=== PATIENT | female | born 1965 | race Caucasian/White ===

== ENCOUNTER → 2017-01-04 | Outpatient (CLI) | payer OTHER ==
[2017-01-04 14:05] VITALS: BP 118/66; PULSE 62; RESP 16; TEMP 98.1; BMI 30.3
[2017-01-04 17:42] LABS: CH 27.8; CHCM 32.7; HCT 34.9 % (34.0-46.0); HDW 2.47; HGB 11.9 gm/dL (11.4-16.0); MCH 29.3 pg (25.0-35.0); MCHC 34.3 g/dL (31.0-37.0); MCV 85.4 fL (80.0-100.0); Mean Platelet Volume 7.1; RBC 4.08 m/uL (3.80-5.40); RDW 13.6 % (11.5-15.5); WBC 4.9 k/uL (3.8-10.6)
[2017-01-04 17:51] LABS: Partial Thromboplastin Time 22.9 sec (22.0-30.0); Prothrombin Time 10.1 sec (9.0-12.0)
[2017-01-04 18:07] LABS: ALT 44 U/L (9-52); AST 31 U/L (14-36); Alkaline Phosphatase 95 U/L (38-126); Anion Gap 11 mmol/L; Blood Urea Nitrogen 16 mg/dL (7-17); Calcium 9.3 mg/dL (8.4-10.2); Carbon Dioxide 26 mmol/L (22-30); Chloride 103 mmol/L (98-107); Cholesterol 194 mg/dL (<200); Glucose 81 mg/dL (74-99); HDL Cholesterol 60 mg/dL (40-60); Iron 52 ug/dL (37-170); Magnesium 2.1 mg/dL (1.6-2.3); Non-African American GFR(MDRD) >60 (>60 ml/min/1.73 sqM); Phosphorous 4.1 mg/dL (2.5-4.5); Potassium 4.3 mmol/L (3.5-5.1); Sodium 140 mmol/L (137-145); Total Bilirubin 0.4 mg/dL (0.2-1.3); Total Protein 6.9 g/dL (6.3-8.2)
[2017-01-04 18:47] LABS: Prealbumin 22 mg/dL (18-36); Total Iron Binding Capacity 372 ug/dL (265-497)
[2017-01-04 19:11] LABS: Vitamin B12 243 pg/mL (239-931)
[2017-01-04 20:23] LABS: Hemoglobin A1C 5.4 % (4.2-6.1)
[2017-01-10 16:44] LABS: Selenium 136 mcg/L (63-160)
--- NOTE | 2017-02-04 10:27 | P.PN ---
Progress Note - Text DATE OF SERVICE: 01/04/2017 CHIEF COMPLAINT: Follow-up gastric bypass. HISTORY OF PRESENT ILLNESS: Angelique Little is a 51-year-old female who is status post conversion from a band to a sleeve to now a Montrell-en-Y gastric bypass in February 2015. She denies any recurrent gastroesophageal reflux disease. She denies any increased fatigue. She has personal history of chronic iron deficiency anemia. Since her last visit 9 months ago, she has gained 6 pounds. She and her has been vacationing in [place]. She reports overall doing very well. Her highest weight prior to any surgical intervention was 300 pounds. Today she comes in weighing 193 pounds. Her ideal body weight for her 5-foot 7-inch frame is 158 pounds. She has maintained a 107-pound weight loss. Body mass index has been reduced from 47 down to 30.3. Percent excess weight loss has been maintained at 75 %. Since her weight loss she has maintained a 16.7 BMI point decrease. PAST MEDICAL HISTORY: 1. Morbid obesity. 2. GERD. 3. Iron deficiency anemia. 4. Leukopenia. 5. Variant multiple sclerosis. 6. Chronic migraines. PAST SURGICAL HISTORY: 1. . 2. Cholecystectomy. 3. Tubal ligation. 4. Adjustable gastric band placement. 5. Band removal with revision to sleeve gastrectomy. 6. Revision from sleeve gastrectomy to a Montrell-en-Y gastric bypass. MEDICATIONS: 1. Vitamin A. 2. Multivitamin. 3. Iron. 4. Cod liver oil. 5. Vitamin D. 6. Calcium. ALLERGIES: Denies. SOCIAL HISTORY: Denies any active alcohol or tobacco use. FAMILY HISTORY: Both parents are . Mother of brain hemorrhage. Father of lymphoma. Brother of lung cancer. REVIEW OF SYSTEMS: CONSTITUTIONAL: Highest weight of 300 pounds. [place] body weight 158 pounds for a 5-foot 7-inch frame. Total maintained weight loss of 113 pounds. Percent excess weight loss of 75 %. Body mass index reduced from 47 down to 30.3. BMI point reduction of 16.7. GASTROINTESTINAL: Resolved gastroesophageal reflux disease. No dumping syndrome. RESPIRATORY: No reports of obstructive sleep apnea. CARDIOVASCULAR: No reports of hypertension. HEENT: Denies any trouble with vision, hearing or nosebleeds. No difficulty swallowing. LYMPHATIC: The patient denies any lumps and bumps around the neck. ENDOCRINE: Denies any thyroid disorders. Denies any blood sugar glucose intolerance. GENITOURINARY: Denies any blood in urine or increased urinary frequency. MUSCULOSKELETAL: Resolved bilateral lower extremity swelling. NEUROLOGIC: Denies any numbness or tingling along the distal extremities. No seizure disorders or headaches. PSYCHIATRIC: Denies any depression or suicidal ideation. HEMATOLOGIC: Denies any abnormal bleeding or bruising. Has chronic anemia. PHYSICAL EXAM: VITAL SIGNS: 5 feet 7 inches; 193 pounds. Body mass index 30.3. Vital Signs Temp 98.1 F 01/04/17 13:54 Pulse 62 01/04/17 13:54 Resp 16 01/04/17 13:54 BP 118/66 01/04/17 13:54 Pulse Ox GENERAL: Well-developed female in no acute distress. ABDOMEN: Soft, nontender. No peritoneal signs. No incisional hernias. HEENT: No sclera icterus. Extraocular movements grossly intact. Moist buccal mucosa. Head is atraumatic, normocephalic. Hears conversational speech. No nasal drainage. NECK: Supple without lymphadenopathy. No JV distention. CHEST: Non-labored respirations and equal bilateral excursions. CARDIOVASCULAR: Regular rate and rhythm. Palpable 2+ radial pulses. MUSCULOSKELETAL: No clubbing, cyanosis or edema. NEUROLOGIC: No focal or lateralizing signs. PSYCH: Appropriate affect. Alert and oriented to person, place and time. LABS: Laboratory Last Values WBC 4.9 k/uL (3.8-10.6) 01/04/17 16:41 RBC 4.08 m/uL (3.80-5.40) 01/04/17 16:41 Hgb 11.9 gm/dL (11.4-16.0) 01/04/17 16:41 Hct 34.9 % (34.0-46.0) 01/04/17 16:41 MCV 85.4 fL (80.0-100.0) 01/04/17 16:41 MCH 29.3 pg (25.0-35.0) 01/04/17 16:41 MCHC 34.3 g/dL (31.0-37.0) 01/04/17 16:41 RDW 13.6 % (11.5-15.5) 01/04/17 16:41 Plt Count 280 k/uL (150-450) 01/04/17 16:41 PT 10.1 sec (9.0-12.0) 01/04/17 16:41 INR 1.0 (<1.1) 01/04/17 16:41 APTT 22.9 sec (22.0-30.0) 01/04/17 16:41 Sodium 140 mmol/L (137-145) 01/04/17 16:41 Potassium 4.3 mmol/L (3.5-5.1) 01/04/17 16:41 Chloride 103 mmol/L (98-107) 01/04/17 16:41 Carbon Dioxide 26 mmol/L (22-30) 01/04/17 16:41 Anion Gap 11 mmol/L 01/04/17 16:41 BUN 16 mg/dL (7-17) 01/04/17 16:41 Creatinine 0.60 mg/dL (0.52-1.04) 01/04/17 16:41 Est GFR (MDRD) Af Amer >60 (>60 ml/min/1.73 sqM) 01/04/17 16:41 Est GFR (MDRD) Non-Af >60 (>60 ml/min/1.73 sqM) 01/04/17 16:41 Glucose 81 mg/dL (74-99) 01/04/17 16:[address] Glu mg/dL 108 mg/dL 01/04/17 16:41 Hemoglobin A1c 5.4 % (4.2-6.1) 01/04/17 16:41 Calcium 9.3 mg/dL (8.4-10.2) 01/04/17 16:41 Phosphorus 4.1 mg/dL (2.5-4.5) 01/04/17 16:41 Magnesium 2.1 mg/dL (1.6-2.3) 01/04/17 16:41 Iron 52 ug/dL (37-170) 01/04/17 16:41 TIBC 372 ug/dL (265-497) 01/04/17 16:41 Ferritin 7 ng/mL (11-264) L 01/04/17 16:41 Total Bilirubin 0.4 mg/dL (0.2-1.3) 01/04/17 16:41 AST 31 U/L (14-36) 01/04/17 16:41 ALT 44 U/L (9-52) 01/04/17 16:41 Alkaline Phosphatase 95 U/L (38-126) 01/04/17 16:41 Total Protein 6.9 g/dL (6.3-8.2) 01/04/17 16:41 Albumin 4.3 g/dL (3.5-5.0) 01/04/17 16:41 Prealbumin 22 mg/dL (18-36) 01/04/17 16:41 Triglycerides 163 mg/dL (<150) H 01/04/17 16:41 Cholesterol 194 mg/dL (<200) 01/04/17 16:41 LDL Cholesterol, Calc 101 mg/dL (0-99) H 01/04/17 16:41 HDL Cholesterol 60 mg/dL (40-60) 01/04/17 16:41 Vitamin A 36 ug/dL (38-106) L 01/04/17 16:41 Vitamin B1 48 ug/L (38-122) 01/04/17 16:41 Vitamin B12 243 pg/mL (239-931) 01/04/17 16:41 Vitamin D 25-Hydroxy 31.9 ng/mL (30.0-100.0) 01/04/17 16:41 Folate 11.70 ng/mL (>2.75) 01/04/17 16:41 TSH 1.560 mIU/L (0.465-4.680) 01/04/17 16:41 PTH Intact 126.0 pg/mL (14.0-72.0) H 01/04/17 16:41 Copper 1212 ug/L (810-1990) 01/04/17 16:41 Selenium 136 mcg/L (63-160) 01/04/17 16:41 Zinc 61 ug/dL (60-130) 01/04/17 16:41 ASSESSMENT: 1. Morbid obesity due to excess caloric intake. 2. Body mass index reduced from 47 down to 30.3. 3. Status post revision from sleeve gastrectomy to a Montrell-en-Y gastric bypass. 4. Gastroesophageal reflux disease, severe, now resolved. 5. History of fatigue. 6. History of chronic iron deficiency anemia, now improved. 7. Panniculitis of the abdomen. 8. Chronic migraines. 9. Secondary hyperparathyroidism. 10. Vitamin A deficiency. PLAN: 1. Recommend completion of bariatric metabolic panel 2. Continue multivitamins. 3. Recommend protein intake at least 60 g daily. 4. Follow-up in [place] in 2 to 3 weeks. 5. Recommend vitamin A supplement. 6. Recommend calcium intake over 1200 mg daily.
== END | disposition home or self-care (01) ==
LOC: BARWHC3 13:48
PROVIDERS: ATTEND Surgery Plastic and Reconstructive Surgery
DX: Z48.815 Encounter for surgical aftercare following surgery on the digestive system (principal); K65.4 Sclerosing mesenteritis; G43.909 Migraine, unspecified, not intractable, without status migrainosus; N25.81 Secondary hyperparathyroidism of renal origin; E50.9 Vitamin A deficiency, unspecified; E21.1 Secondary hyperparathyroidism, not elsewhere classified; E89.1 Postprocedural hypoinsulinemia; D50.8 Other iron deficiency anemias; K90.89 Other intestinal malabsorption; E55.9 Vitamin D deficiency, unspecified; K76.9 Liver disease, unspecified; N19 Unspecified kidney failure; K50.90 Crohn's disease, unspecified, without complications; E66.01 Morbid (severe) obesity due to excess calories; Z68.30 Body mass index [BMI] 30.0-30.9, adult; Z98.84 Bariatric surgery status; Z86.2 Personal history of diseases of the blood and blood-forming organs and certain disorders involving the immune mechanism; Z79.899 Other long term (current) drug therapy
CPT/HCPCS: 84255; 84134; 84425; 80061; 80053; 82607; 82728; 83036; 82525; 82746; 83540; 83550; 83735; 84100; 84443; 84590; 84630; 85027; 85610; 85730; 82306; 83970; 97803; G0463; 99211

== ENCOUNTER → 2018-04-25 | Outpatient (CLI) | payer OTHER ==
[2018-04-25 15:00] VITALS: BP 120/70; PULSE 70; RESP 16; TEMP 98; BMI 29.6
--- NOTE | 2018-04-25 15:32 | P.PN ---
Subjective Progress Note Date: 04/25/18 HPI: She is doing well. She has lost 8 pounds since her last visit. She reports adequate appetite. No new abdominal pain. No GERD. Highest weight was 257 pounds. She has chronic skin infections and ulcerations. She is looking to lose more weight. ABDOMEN: No hernia. ASSESSMENT: 1. Gastric bypass 2. Morbid obesity. PLAN: 1. She is doing well. 2. She is looking into panniculectomy 3. Nystatin powder. Objective - Vital Signs Vital signs: Vital Signs Temp 98 F 04/25/18 14:30 Pulse 70 04/25/18 14:30 Resp 16 04/25/18 14:30 BP 120/70 04/25/18 14:30 Pulse Ox Intake & Output 04/24/18 04/25/18 04/25/18 18:59 06:59 18:59 Weight 85.729 kg
== END ==
LOC: BARWHC3 13:55
PROVIDERS: ATTEND Surgery Plastic and Reconstructive Surgery
DX: E66.01 Morbid (severe) obesity due to excess calories (principal); L08.9 Local infection of the skin and subcutaneous tissue, unspecified; Z68.29 Body mass index [BMI] 29.0-29.9, adult
CPT/HCPCS: 99211

== ENCOUNTER → 2018-10-25 | Day surgery (SDC) | payer OTHER ==
[2018-10-23 13:32] VITALS: BMI 32.4
[~2018-10-25] MED LIST: LACTATED RINGERS 1,000 ML IV SCH; LIDOCAINE 1% 20 ML VIAL (10MG/ML) FOR IV START INTRADERMA ONE; LIDOCAINE 1% INJ 10MG/ML (20 ML MDV) ONE; PROPOFOL 10 MG/ML 20 ML VIAL IV ONE
--- NOTE | 2018-10-25 09:20 | P.GSHP ---
History of Present Illness H&P Date: 10/25/18 CHIEF COMPLAINT: GERD and colon screen HISTORY OF PRESENT ILLNESS: The patient is a 53-year-old female who presents with gastroesophageal reflux disease and need for colon screen. Upper and lower endoscopy were offered for further evaluation and management. PAST MEDICAL HISTORY: Please see list. PAST SURGICAL HISTORY: Please see list. MEDICATIONS: Please see list. ALLERGIES: Please see list. SOCIAL HISTORY: No illicit drug use FAMILY HISTORY: No reports of Crohn disease or ulcerative colitis. REVIEW OF ORGAN SYSTEMS: CONSTITUTIONAL: No reports of fevers or chills. GI: Denies any blood in stools or constipation. PHYSICAL EXAM: VITAL SIGNS: Stable GENERAL: Well-developed pleasant in no acute distress. HEENT: No scleral icterus. Extraocular movements grossly intact. Moist buccal mucosa. NECK: Supple without lymphadenopathy. CHEST: Unlabored respirations. Equal bilateral excursions. CARDIOVASCULAR: Regular rate and rhythm. Distal 2+ pulses. ABDOMEN: Soft, nondistended. MUSCULOSKELETAL: No clubbing, cyanosis, or edema. ASSESSMENT: 1. Gastroesophageal reflux disease 2. Colon screen. PLAN: 1. Recommend proceeding with an upper and lower endoscopy Past Medical History Past Medical History: Blood Disorder, GERD/Reflux Additional Past Medical History / Comment(s): Has a kidney stones, runs low BP, Hx severe anemia. HX HYPOGLYCEMIA. C/O PAIN IN LUQ ABD/RIB AREA. History of Any Multi-Drug Resistant Organisms: None Reported Past Surgical History: Bariatric Surgery, Section, Cholecystectomy, Tubal Ligation Additional Past Surgical History / Comment(s): lap band 2009, later removed. gastric sleeve 2012, ELLIOT-N-Y 2014. Past Anesthesia/Blood Transfusion Reactions: Postoperative Nausea & Vomiting (PONV) Additional Past Anesthesia/Blood Transfusion Reaction / Comment(s): only once after surgery Smoking Status: Former smoker - Past Family History Mother Family Medical History: Deep Vein Thrombosis (DVT) Father Family Medical History: Cancer Brother(s) Family Medical History: Cancer Sister(s) Family Medical History: Cancer, Deep Vein Thrombosis (DVT) Medications and Allergies Home Medications Medication Instructions Recorded Confirmed Type Multivitamin [Multivitamins Adult 2 each PO DAILY 10/23/18 10/25/18 History Gummies] Allergies Allergy/AdvReac Type Severity Reaction Status Date / Time tree nut Allergy Anaphylaxis Verified 10/25/18 09:15 acetaminophen AdvReac Nausea Verified 10/25/18 09:15 [From Darvocet-N] propoxyphene AdvReac Nausea Verified 10/25/18 09:15 [From Darvocet-N] FRUIT (FRESH) Allergy Anaphylaxis Uncoded 10/25/18 09:15
[2018-10-25 09:21] VITALS: RESP 16; TEMP 98.2
[2018-10-25 09:28] LABS: Glucose,Whole Blood 86 mg/dL (75-99)
[2018-10-25 10:16] VITALS: PULSE 53
[2018-10-25 10:29] VITALS: BP 114/74
--- NOTE | 2018-11-05 10:27 | P.PCN ---
Date of Procedure: 10/25/18 Description of Procedure: PREOPERATIVE DIAGNOSIS: Dysphagia. Epigastric pain POSTOPERATIVE DIAGNOSIS: Dysphagia. Epigastric pain Gastric stenosis Gastrojejunal stricture without chronic ulcer without perforation OPERATION: Esophagogastrojejunoscopy with balloon dilatation from 18 to 20 mm. SURGEON: Larissa Handy MD ANESTHESIA: MAC. INDICATIONS: The patient is a 53-year-old female who presents with a history of dysphagia including epigastric pain. Benefits and risks of the procedure were described. Informed consent was obtained. DESCRIPTION: The patient was brought into the endoscopy suite and laid in the left lateral decubitus position. After a timeout was confirmed, the procedure was initiated. An Olympus gastroscope was passed along the posterior oropharynx down to the distal esophagus where the squamocolumnar junction was unremarkable. The gastric pouch was entered. A gastrojejunal stricture of 18 mm was found as the adult gastroscope was 9.5 mm in size. A [employer] balloon dilator was placed through the scope. Final insufflation up to 20 mm was performed with a total of 2 minutes. The scope was advanced up to 60 cm from the incisors into the [place] limb. The mucosa of the gastrojejunal anastomosis was intact. No chronic gastrojejunal marginal ulcer was encountered. No full-thickness injury was encountered. The GI tract was desufflated. The patient tolerated the procedure well. FINDINGS: Squamocolumnar junction unremarkable at 38 cm. Stricture of approximately 18 mm encountered. No chronic gastrojejunal ulceration encountered. Successful balloon dilatation to 20 mm. Gastric pouch 5 cm, 38 to 43 cm from the incisors RECOMMENDATIONS: Upper endoscopy as needed
--- NOTE | 2018-11-05 10:30 | P.PCN ---
Date of Procedure: 10/25/18 Description of Procedure: PREOPERATIVE DIAGNOSIS: Family history of colon cancer, high risk Colonoscopy screening. POSTOPERATIVE DIAGNOSIS: Family history of colon cancer, high risk Colonoscopy screening. OPERATION: Colonoscopy to the ileocecal valve and appendiceal orifice. SURGEON: Larissa Handy MD. ANESTHESIA: MAC. INDICATIONS: The patient is a 53-year-old female who presents for colonoscopy screening. Last colonoscopy 5 years ago. Benefits and risks were described and informed consent was obtained. DESCRIPTION OF PROCEDURE: The patient had undergone Gatorade, MiraLAX and Dulcolax prep. She had been brought into the operating room and laid in the left lateral decubitus position. After adequate intravenous sedation, the rectum was examined with 2% lidocaine jelly. No external hemorrhoids were encountered. The rectal tone was within normal limits. No lesions were palpated in the rectal vault. An Olympus colonoscope was advanced until the ileocecal valve and appendiceal orifice were clearly viewed. The prep was good. The scope was removed with visualization of each mucosal fold. No scattered diverticulosis was encountered. No colonic polyps were found. No evidence of focal colitis was found. Retroflexion of the scope demonstrated no internal hemorrhoids. The colon was desufflated. The patient had tolerated the procedure well. Withdrawal time was over 6 minutes. FINDINGS: Aronchick preparation quality scale 2 (1-5) No internal hemorrhoids No scattered diverticulosis No external prolapsed hemorrhoids. No arteriovenous malformations. No adenomatous polyps. No focal colitis. RECOMMENDATIONS: Lower endoscopy in 5 years, 2023 Plan - Discharge Summary Discharge Rx Participant: No New Discharge Prescriptions: No Action Multivitamin [Multivitamins Adult Gummies] 2 each PO DAILY Discharge Medication List Multivitamin [Multivitamins Adult Gummies] 2 each PO DAILY 10/23/18 [History] Follow up Appointment(s)/Referral(s): Larissa Handy MD [STAFF PHYSICIAN] - As Needed Patient Instructions/Handouts: *Surgery [facility] - (Anesthesia) Endoscopy Discharge Instructions, Upper Endoscopy (DC) Activity/Diet/Wound Care/Special Instructions: clears for today, slowly increase to soft foods then regular. small amts at a time. Call Dr Handy if pain persists or any other questions or concerns. Discharge Disposition: HOME SELF-CARE
== END | disposition home or self-care (01) ==
LOC: ORWHC2ENDO 08:38
PROVIDERS: ATTEND Surgery Plastic and Reconstructive Surgery
DX: Z12.11 Encounter for screening for malignant neoplasm of colon (principal); K92.89 Other specified diseases of the digestive system; K21.9 Gastro-esophageal reflux disease without esophagitis; Z98.84 Bariatric surgery status; Z87.891 Personal history of nicotine dependence; Z87.442 Personal history of urinary calculi; Z91.018 Allergy to other foods; Z88.5 Allergy status to narcotic agent; Z90.49 Acquired absence of other specified parts of digestive tract; Z88.8 Allergy status to other drugs, medicaments and biological substances; Z80.0 Family history of malignant neoplasm of digestive organs
CPT/HCPCS: 43245; J2001; J2704; C1726; G0105; 43249

== ENCOUNTER → 2019-03-20 | Outpatient (CLI) | payer OTHER ==
[2019-03-20 14:02] VITALS: BP 115/72; PULSE 71; RESP 16; TEMP 98.3; BMI 31.4
--- NOTE | 2019-03-20 14:52 | P.PN ---
Subjective Progress Note Date: 03/20/19 03/20/18 She is eating more. She comes in with weight gain 189 to 201 pounds. No reports of hunger pains. She reports eating much carbs. ABDOMEN: Unremarkable ASSESSMENT: 1. Morbid obesity PLAN: 1. Food diary journal 2. Curb the carbs 3. Bariatric labs 4. Left upper abdominal pain - peritoneal adhesions, robot 1 hr DATE OF SERVICE: 04/25/2018 CHIEF COMPLAINT: Follow-up gastric bypass. HISTORY OF PRESENT ILLNESS: Angelique Little is a 52-year-old female who is status post conversion from a band to a sleeve to now a Montrell-en-Y gastric bypass in February 2015. She is 3 years out. She is doing well. She has lost 5 pounds in 1 year. She reports adequate appetite. No new abdominal pain. No GERD. She reports chronic skin infections and ulcerations despite medical treatment. Her highest weight prior to any surgical intervention was 300 pounds. Today she comes in weighing 193 pounds. Her ideal body weight for her 5-foot 7-inch frame is 158 pounds. She has maintained a 111-pound weight loss. Body mass index has been reduced from 47.1 down to 29.1. Percent excess weight loss has been maintained at 78 %. PAST MEDICAL HISTORY: 1. Morbid obesity, BMI 47.1, initial 2. GERD now resolved. 3. Iron deficiency anemia. 4. Leukopenia. 5. Variant multiple sclerosis. 6. Chronic migraines. PAST SURGICAL HISTORY: 1. . 2. Cholecystectomy. 3. Tubal ligation. 4. Adjustable gastric band placement. 5. Band removal with revision to sleeve gastrectomy. 6. Revision from sleeve gastrectomy to a Montrell-en-Y gastric bypass. MEDICATIONS: 1. Vitamin A. 2. Multivitamin. 3. Iron. 4. Cod liver oil. 5. Vitamin D. 6. Calcium. ALLERGIES: Denies. SOCIAL HISTORY: Denies any active alcohol or tobacco use. FAMILY HISTORY: Both parents are . Mother of brain hemorrhage. Father of lymphoma. Brother of lung cancer. REVIEW OF SYSTEMS: CONSTITUTIONAL: Highest weight of 300 pounds. [place] body weight 158 pounds for a 5-foot 7-inch frame. Body mass index 47.1 initial. GASTROINTESTINAL: Resolved gastroesophageal reflux disease. No dumping syndrome. RESPIRATORY: No reports of obstructive sleep apnea. CARDIOVASCULAR: No reports of hypertension. HEENT: Denies any trouble with vision, hearing or nosebleeds. No difficulty swallowing. LYMPHATIC: The patient denies any lumps and bumps around the neck. ENDOCRINE: Denies any thyroid disorders. Denies any blood sugar glucose intolerance. GENITOURINARY: Denies any blood in urine or increased urinary frequency. MUSCULOSKELETAL: Resolved bilateral lower extremity swelling. NEUROLOGIC: Denies any numbness or tingling along the distal extremities. No seizure disorders or headaches. PSYCHIATRIC: Denies any depression or suicidal ideation. HEMATOLOGIC: Denies any abnormal bleeding or bruising. Has chronic anemia. PHYSICAL EXAM: VITAL SIGNS: 5 feet 7 inches; 189 pounds. Body mass index 29.6. Vital Signs Temp 98 F 04/25/18 14:30 Pulse 70 04/25/18 14:30 Resp 16 04/25/18 14:30 BP 120/70 04/25/18 14:30 Pulse Ox GENERAL: Well-developed female in no acute distress. ABDOMEN: Soft, nontender. No peritoneal signs. No incisional hernias. HEENT: No sclera icterus. Extraocular movements grossly intact. Moist buccal mucosa. Head is atraumatic, normocephalic. Hears conversational speech. No nasal drainage. NECK: Supple without lymphadenopathy. No JV distention. CHEST: Non-labored respirations and equal bilateral excursions. CARDIOVASCULAR: Regular rate and rhythm. Palpable 2+ radial pulses. MUSCULOSKELETAL: No clubbing, cyanosis or edema. NEUROLOGIC: No focal or lateralizing signs. PSYCH: Appropriate affect. Alert and oriented to person, place and time. SKIN: Well perfused. Good skin turgor. Moderate panniculitis with pannus over 5-cm over pubis and weight over 5 pounds. LABS: Reviewed demonstrating resolved by deficiency anemia ASSESSMENT: 1. Morbid obesity due to excess caloric intake. 2. Body mass index reduced from 47 down to 29.6 3. Status post revision from sleeve gastrectomy to a Montrell-en-Y gastric bypass. 4. Gastroesophageal reflux disease, severe, now resolved. 5. History of fatigue. 6. History of chronic iron deficiency anemia, now improved. 7. Panniculitis of the abdomen. 8. Chronic migraines. 9. Secondary hyperparathyroidism. 10. Vitamin A deficiency. PLAN: 1. She has chronic panniculitis despite medical treatment with prescribed nystatin powder and has chronic lower abdominal pain for over 1 to 2 years. 2. Recommend evaluation for panniculectomy. Benefits and risks including bleeding, infection, failure of skin flaps, cosmetic deformity and need for further surgery were described for which she is at intermediate risk for complications with history of iron deficiency anemia. 3. Continue nystatin powder in the interim 4. Recommend bariatric labs. 5. Two-week high-protein diet preoperatively described to maximize wound healing. 6. Panniculectomy packet reviewed. 7. Overnight hospitalization described. Objective - Vital Signs Vital signs: Vital Signs Temp 98.3 F 03/20/19 13:59 Pulse 71 03/20/19 13:59 Resp 16 03/20/19 13:59 BP 115/72 03/20/19 13:59 Pulse Ox Intake & Output 03/19/19 03/20/19 03/20/19 18:59 06:59 18:59 Weight 91.172 kg
[2019-03-20 17:48] LABS: INR 0.9 (<1.2); Partial Thromboplastin Time 22.7 sec (22.0-30.0)
[2019-03-21 04:53] LABS: Hemoglobin A1C 5.3 % (4.0-6.0)
[2019-03-21 05:30] LABS: Albumin 4.3 g/dL (3.80-4.90); Albumin/Globulin Ratio 2.26 (1.60-3.17); Anion Gap 11.9 mmol/L (4.00-12.00); BUN/Creat Ratio 22.86 Ratio (12.00-20.00); Calcium 9.2 mg/dL (8.7-10.3); Carbon Dioxide 24.1 mmol/L (21.6-31.8); Chol/HDL Ratio 3.21; Globulin 1.9 g/dL (1.6-3.3); LDL Cholesterol,Calculated 97.2 mg/dL (0.0-131.0); Magnesium 1.9 mg/dL (1.5-2.4); Phosphorus 4.5 mg/dL (2.4-5.1); Potassium 4.2 mmol/L (3.5-5.5); Total Bilirubin 0.3 mg/dL (0.3-1.2); Total Protein 6.2 g/dL (6.2-8.2); VLDL Calculation 28.8 mg/dL (5.00-40.00)
[2019-03-21 05:33] LABS: Iron Saturation 12.5 (12.00-45.00)
[2019-03-21 05:42] LABS: Vitamin D 25 Hydroxy 31.1 ng/mL (30.0-100.0)
[2019-03-21 06:16] LABS: Ferritin 6.9 ng/mL (10.0-291.0); Folate, Serum 13.5 ng/mL
[2019-03-21 09:22] LABS: Anisocytosis Slight; HCT 34.5 % (34.0-46.0); HGB 11.2 gm/dL (11.4-16.0); Hypochromasia Slight; MCH 27.9 pg (25.0-35.0); MCHC 32.3 g/dL (31.0-37.0); MCV 86.3 fL (80.0-100.0); Mean Platelet Volume 8.7; Platelet Count 287 k/uL (150-450); RDW 16.3 % (11.5-15.5); WBC 4.2 k/uL (3.8-10.6)
[2019-03-21 12:11] LABS: Zinc, Serum 61 ug/dL (60-130)
[2019-03-22 06:51] LABS: Vitamin A 36 ug/dL (38-106)
[2019-03-22 07:52] LABS: Vit B1(Thiamine) 112 ug/L (38-122)
== END | disposition home or self-care (01) ==
LOC: BARWHC3 13:45
PROVIDERS: ATTEND Surgery Plastic and Reconstructive Surgery
DX: E66.01 Morbid (severe) obesity due to excess calories (principal); Z68.29 Body mass index [BMI] 29.0-29.9, adult; M79.3 Panniculitis, unspecified; G43.709 Chronic migraine without aura, not intractable, without status migrainosus; E21.1 Secondary hyperparathyroidism, not elsewhere classified; E50.9 Vitamin A deficiency, unspecified; L08.89 Other specified local infections of the skin and subcutaneous tissue; L98.499 Non-pressure chronic ulcer of skin of other sites with unspecified severity; Z87.312 Personal history of (healed) stress fracture; D50.9 Iron deficiency anemia, unspecified; E89.1 Postprocedural hypoinsulinemia; E55.9 Vitamin D deficiency, unspecified; K74.1 Hepatic sclerosis; N19 Unspecified kidney failure; K50.90 Crohn's disease, unspecified, without complications; K90.9 Intestinal malabsorption, unspecified; Z90.49 Acquired absence of other specified parts of digestive tract; Z98.51 Tubal ligation status; Z98.84 Bariatric surgery status; Z46.51 Encounter for fitting and adjustment of gastric lap band; Z79.899 Other long term (current) drug therapy
CPT/HCPCS: 84255; 84134; 84425; 80061; 80053; 82607; 82728; 82525; 82746; 83540; 83550; 83735; 84100; 84443; 84590; 84630; 85027; 85610; 85730; 82306; 83970; 83036; G0463; 99211

== ENCOUNTER → 2019-04-09 | Outpatient (CLI) | payer OTHER ==
[2019-04-09 11:21] LABS: ALT 26 U/L (9-52); AST 26 U/L (14-36); African American GFR (CKD) >90 (>60 ml/min/1.73 sqM); Albumin 4.1 g/dL (3.5-5.0); Alkaline Phosphatase 98 U/L (38-126); Anion Gap 6 mmol/L; Blood Urea Nitrogen 15 mg/dL (7-17); Calcium 9.4 mg/dL (8.4-10.2); Carbon Dioxide 29 mmol/L (22-30); Chloride 105 mmol/L (98-107); Glucose 107 mg/dL (74-99); Potassium 4.8 mmol/L (3.5-5.1); Sodium 140 mmol/L (137-145); Total Bilirubin 0.3 mg/dL (0.2-1.3)
[2019-04-09 11:47] LABS: Basophils % (A) 1 %; Eosinophils # (A) 0.2 k/uL (0-0.7); Eosinophils % (A) 5 %; HCT 35.5 % (34.0-46.0); HGB 11.3 gm/dL (11.4-16.0); Hypochromasia Slight; Lymphocytes # (A) 1.2 k/uL (1.0-4.8); Lymphocytes % (A) 34 %; MCH 27.8 pg (25.0-35.0); MCHC 31.7 g/dL (31.0-37.0); MCV 87.9 fL (80.0-100.0); Monocytes # (A) 0.2 k/uL (0-1.0); Monocytes % (A) 6 %; Neutrophils # (A) 1.8 k/uL (1.3-7.7); Neutrophils % (A) 52 %; Platelet Count 292 k/uL (150-450); RBC 4.04 m/uL (3.80-5.40); RDW 13.6 % (11.5-15.5); WBC 3.5 k/uL (3.8-10.6)
== END | disposition home or self-care (01) ==
LOC: LABPAT 10:26
PROVIDERS: ATTEND Surgery Plastic and Reconstructive Surgery
DX: Z01.818 Encounter for other preprocedural examination (principal); Z01.812 Encounter for preprocedural laboratory examination
CPT/HCPCS: 36415; 80053; 85025; 93005

== ENCOUNTER 2019-04-29 07:32 | Day surgery (SDC) | payer OTHER ==
[2019-04-23 11:58] VITALS: BMI 31.4
--- NOTE | 2019-04-28 19:56 | P.GSHP ---
History of Present Illness H&P Date: 04/29/19 CHIEF COMPLAINT: History of intra-abdominal adhesions HISTORY OF PRESENT ILLNESS: The patient is a 53-year-old female who presents with history of intra-abdominal adhesions from multiple prior surgeries including increasing abdominal pain. She now presents for diagnostic laparoscopy including lysis of adhesions. PAST MEDICAL HISTORY: Please see list. PAST SURGICAL HISTORY: Please see list. MEDICATIONS: Please see list. ALLERGIES: Please see list. SOCIAL HISTORY: No illicit drug use FAMILY HISTORY: No reports of Crohn disease or ulcerative colitis. REVIEW OF ORGAN SYSTEMS: CONSTITUTIONAL: No reports of fevers or chills. GI: Denies any blood in stools or constipation. PHYSICAL EXAM: VITAL SIGNS: Stable GENERAL: Well-developed pleasant and in no acute distress. HEENT: No scleral icterus. Extraocular movements grossly intact. Moist buccal mucosa. NECK: Supple without lymphadenopathy. CHEST: Unlabored respirations. Equal bilateral excursions. CARDIOVASCULAR: Regular rate and rhythm. Distal 2+ pulses. ABDOMEN: Soft, diffuse abdominal tenderness. No peritonitis. MUSCULOSKELETAL: No clubbing, cyanosis, or edema. ASSESSMENT: 1. Diffuse abdominal pain. 2. History of multiple abdominal surgeries. 3. Intra-abdominal adhesions. PLAN: 1. Robotic lysis of adhesions were described in detail including risk of injury to the intestine, need for further surgery, and open technique. 2. DVT prophylaxis. 3. Antibiotic prophylaxis. Past Medical History Past Medical History: Cancer, GERD/Reflux Additional Past Medical History / Comment(s): kidney stones, runs low BP, Hx OF anemia. HX HYPOGLYCEMIA. C/O PAIN IN [place] ABD/RIB AREA." POSSIBLE CERVICAL CANCER OR PRE CANCER" History of Any Multi-Drug Resistant Organisms: None Reported Past Surgical History: Bariatric Surgery, Section, Cholecystectomy, Tubal Ligation Additional Past Surgical History / Comment(s): lap band 2009, later removed. gastric sleeve 2012, ELLIOT-N-Y 2014. Past Anesthesia/Blood Transfusion Reactions: Postoperative Nausea & Vomiting (PONV) Additional Past Anesthesia/Blood Transfusion Reaction / Comment(s): only once after surgery Smoking Status: Former smoker - Past Family History Mother Family Medical History: Deep Vein Thrombosis (DVT) Father Family Medical History: Cancer Brother(s) Family Medical History: Cancer Sister(s) Family Medical History: Cancer, Deep Vein Thrombosis (DVT) Medications and Allergies Home Medications Medication Instructions Recorded Confirmed Type Multivitamin [Multivitamins Adult 2 each PO DAILY 10/23/18 04/23/19 History Gummies] Ferrous Sulfate [Feosol] 325 mg PO DAILY 04/23/19 04/23/19 History Allergies Allergy/AdvReac Type Severity Reaction Status Date / Time peach Allergy Anaphylaxis Verified 04/23/19 11:34 tree nut Allergy Anaphylaxis Verified 04/23/19 10:58 propoxyphene AdvReac Nausea Verified 04/24/19 12:04 [From Janes] STONE FRUITS (FRESH) Allergy SWELLING Uncoded 04/23/19 11:36 OF LIPS AND TONGUE
[~2019-04-29 07:32] MED LIST changes: +DEXAMETHASONE SOD PHOSPHATE 10 MG/ML 1 ML VIAL IV ONE; -LIDOCAINE 1% 20 ML VIAL (10MG/ML) FOR IV START INTRADERMA ONE; -LIDOCAINE 1% INJ 10MG/ML (20 ML MDV) ONE; +MIDAZOLAM 2 MG/2 ML VIAL IV PRN; -PROPOFOL 10 MG/ML 20 ML VIAL IV ONE; +Pre Op ABX Message 1 EACH MISC MISCELLANE ONE; +SCOPOLAMINE 1.5MG/72HR PATCH TRANSDERM ONE
[2019-04-29] MEDS: ONDANSETRON 4 MG/2 ML VIAL IVP ONE ×2 (08:17→12:00)
[2019-04-29] MEDS ORDERED: MIDAZOLAM 2 MG/2 ML VIAL IV ONE (08:24)
[2019-04-29] MEDS ORDERED: fentaNYL (PF) 50 MCG/ML 2 ML AMP IVP ONE (08:24)
--- NOTE | 2019-04-29 08:32 | P.HPADDEND ---
H&P Addendum H&P Addendum Date: 04/29/19 Benefits and risks of procedure described. Patient reports left upper quadrant abdominal pain. Lysis of adhesions were described.
--- NOTE | 2019-04-29 08:37 | P.ANPRN ---
Procedure Note - Anesthesia - Nerve Block Performed Bilateral Rectus Abdominis Single Time Out Performed: Yes Date of Procedure: 04/29/19 Procedure Start Time: 08:23 Procedure Stop Time: 08:32 Location of Patient Procedure: PreOp Indication: Requested by Surgeon Specifically requested for management of pain by DrDamion: Larissa Handy Sedation Type: Sedate with meaningful contact maintained Preparation: Sterile Prep Position: Supine Needle Types: Pajunk Needle Gauge: 21 Ultrasound used to visualize needle placement: Yes Ultrasound used to observe medication spread: Yes Injectate: 0.5% Ropivacaine (see comment for volume) (30 ml +4 mg Dexamethason ( 15 ml each side )) Blood Aspirated: No Pain Paresthesia on Injection Noted: No Resistance on Injection: Normal Image Stored and Saved: Yes Events: Uneventful and Well Tolerated
[2019-04-29] MEDS ORDERED: NEOSTIGMINE 1 MG/ML 10 ML VIAL ONE (09:01)
[2019-04-29] MEDS ORDERED: SUCCINYLCHOLINE CHLORIDE 100 MG/5 ML SYR IV ONE (09:01)
[2019-04-29] MEDS ORDERED: fentaNYL (PF) 50 MCG/ML 2 ML AMP ONE (09:01)
[2019-04-29] MEDS ORDERED: ROCURONIUM BROMIDE 10 MG/ML 10 ML VIAL IV ONE (09:01)
[2019-04-29] MEDS ORDERED: DEXAMETHASONE SOD PHOSPHATE 4 MG/ML 1 ML VIAL ONE (09:01)
[2019-04-29] MEDS ORDERED: GLYCOPYRROLATE 0.2 MG/ML 2 ML VIAL ONE (09:01)
[2019-04-29] MEDS ORDERED: PROPOFOL 10 MG/ML 20 ML VIAL IV ONE (09:01)
[2019-04-29] MEDS ORDERED: LIDOCAINE 1% INJ 10MG/ML (20 ML MDV) ONE (09:01)
[2019-04-29] MEDS ORDERED: ROPIVACAINE 5 MG/ML 30 ML VIAL ONE (09:01)
[2019-04-29] MEDS ORDERED: BUPIVACAINE (PF) 0.25% 30 ML VIAL SQ ONE (09:50)
[2019-04-29 10:05] VITALS: TEMP 96.8
[2019-04-29] MEDS: HYDROmorphone 0.5 MG/0.5 ML SYRINGE IVP PRN ×4 (10:05→10:28)
[2019-04-29] MEDS ORDERED: KETOROLAC 30 MG/ML 1 ML VIAL IVP ONE (10:06)
--- NOTE | 2019-04-29 10:12 | P.OP ---
Date of Procedure: 04/29/19 Description of Procedure: SURGEON: AUNDREA MCBRIDE MD PREOPERATIVE DIAGNOSES: 1. Epigastric abdominal pain 2. Left upper quadrant abdominal pain 3. History of gastric bypass 4. History of multiple abdominal operations 5. Peritoneal adhesions 6. Iron deficiency anemia 7. Obesity, BMI 32.1 POSTOPERATIVE DIAGNOSES: 1. Epigastric abdominal pain due to peritoneal adhesions 2. Left upper quadrant abdominal pain due to peritoneal adhesions 3. History of gastric bypass 4. History of multiple abdominal operations 5. Peritoneal adhesions 6. Iron deficiency anemia 7. Obesity, BMI 32.1 OPERATION: 1. Robotic-assisted da Adeel Xi laparoscopic lysis of adhesions ESTIMATED BLOOD LOSS: 5 mL. SPECIMENS REMOVED: None. COMPLICATIONS: None. OPERATIVE FINDINGS: 1. No ventral hernias identified. 2. Pertioneal adhesions along the epigastrium, left upper quarant 3. Complete scarring of Mckeon defect and jejunojejunostomy mesenteric defect INDICATIONS: The patient is a 53-year-old female who presents with epigastric abdominal pain including left upper quadrant abdominal pain. Surgical intervention with diagnostic laparoscopy, lysis of adhesions were described. Informed consent was obtained. Robotic assisted laparoscopic approach was described. Benefits and risks of the procedure including but not limited to bleeding, infection, injury to the small bowel was described. Informed consent was obtained. DESCRIPTION OF PROCEDURE: Patient was brought to the operating room, placed in supine position. After general induction, the abdomen had been prepped and draped in standard sterile fashion. The robotic da Adeel XI system was primed. After a timeout protocol was performed, the patient had been prepped and draped in standard sterile fashion. The robot was docked along the right lateral abdomen. The patient was repositioned in with right side up. Please note prior to docking of the robot; however, a 5 mm 0 degrees laparoscopic trocar entry was performed along the left upper quadrant. The abdomen was insufflated to 15 mmHg pressure which she tolerated well. Diagnostic laparoscopy was performed. Next, three 8 mm robotic ports were placed along the right lateral abdominal wall. The camera 8-mm port was maintained along mid-lateral abdomen. Please note that the ports were placed at least 10 to 15 cm away from the target anatomy. Instruments including graspers and vessel sealer were interchanged by the assistant housekeeping manager. I had sat at the console. No evidence of incisional hernia was identified. The rest of the abdomen was unremarkable for small bowel pathology. No herniation of bowel was found along the Mckeon defect or jejunojejunostomy mesenteric defect and were completely scarred. Peritoneal adhesion involving the left upper quadrant and epigastrium including the inferior surface of the left and right upper were found adherent to the falciform ligament and on the wall. These adhesions were taken down using sharp dissection with scissors and cautery. The small bowel was viable.The robot was undocked. All pneumoperitoneum instruments were evacuated from the abdominal cavity. The incisions were reapproximated using 4-0 Monocryl in an interrupted subcuticular fashion. Please note along the trocar sites, local anesthetic was placed as a field block prior to insertion of all instruments. Exofin was applied to the skin. At the end of the procedure needle, sponge, and instrument count had been verified correct by the surgical scrub technician. The patient was transferred to postanesthesia care unit in stable condition. Plan - Discharge Summary Discharge Rx Participant: Yes New Discharge Prescriptions: New Acetaminophen Tab [Tylenol Tab] 500 mg PO Q6H PRN #30 tablet PRN Reason: Pain Bisacodyl [Dulcolax] 5 mg PO DAILY PRN #10 tablet. PRN Reason: Constipation Simethicone 40 mg/0.6 ml Drops [Mylicon Drops] 40 mg PO PCHS PRN #30 ml PRN Reason: Gas Ondansetron Odt [Zofran Odt] 4 mg PO Q8HR PRN #9 tab PRN Reason: Nausea No Action Multivitamin [Multivitamins Adult Gummies] 2 each PO DAILY Ferrous Sulfate [Feosol] 325 mg PO DAILY Discharge Medication List Multivitamin [Multivitamins Adult Gummies] 2 each PO DAILY 10/23/18 [History] Ferrous Sulfate [Feosol] 325 mg PO DAILY 04/23/19 [History] Acetaminophen Tab [Tylenol Tab] 500 mg PO Q6H PRN #30 tablet 04/29/19 [Rx] Bisacodyl [Dulcolax] 5 mg PO DAILY PRN #10 tablet. 04/29/19 [Rx] Ondansetron Odt [Zofran Odt] 4 mg PO Q8HR PRN #9 tab 04/29/19 [Rx] Simethicone 40 mg/0.6 ml Drops [Mylicon Drops] 40 mg PO PCHS PRN #30 ml 04/29/19 [Rx] Follow up Appointment(s)/Referral(s): [facility] [NON-STAFF] - 05/01/19 Patient Instructions/Handouts: *Surgery [facility] - Scopalamine Patch Instructions, Lysis of Abdominal Adhesions (DC) Activity/Diet/Wound Care/Special Instructions: No lifting over 10 pounds in 2 weeks, until 05/13/19. May shower. No bath tub soaks until 05/13/19. Diet as tolerated. Apply ice to incisions, 50 min on and 15 min off as needed for pain. Discharge Disposition: HOME SELF-CARE
[2019-04-29] MEDS ORDERED: LACTATED RINGERS 1,000 ML IV ONE (10:30)
[2019-04-29] MEDS ORDERED: ACETAMINOPHEN TAB 500 MG TAB PO ONE (11:27)
[2019-04-29] MEDS ORDERED: HEPARIN SODIUM,PORCINE 5,000 UNIT/ML 1 ML VIAL SQ ONE (12:00)
[2019-04-29] MEDS ORDERED: PROMETHAZINE INJ 25 MG/ML 1 ML VIAL IVPB ONE (12:23)
[2019-04-29 13:14] VITALS: BP 110/76; PULSE 58; RESP 16
== END 2019-04-29 14:04 | disposition home or self-care (01) ==
LOC: OR 07:32
PROVIDERS: ATTEND Surgery Plastic and Reconstructive Surgery
DX: K66.0 Peritoneal adhesions (postprocedural) (postinfection) (principal); D50.9 Iron deficiency anemia, unspecified; E66.01 Morbid (severe) obesity due to excess calories; Z68.32 Body mass index [BMI] 32.0-32.9, adult; Z98.84 Bariatric surgery status; Z98.890 Other specified postprocedural states; Z85.9 Personal history of malignant neoplasm, unspecified; K21.9 Gastro-esophageal reflux disease without esophagitis; Z87.442 Personal history of urinary calculi; Z86.79 Personal history of other diseases of the circulatory system; Z88.5 Allergy status to narcotic agent; Z86.39 Personal history of other endocrine, nutritional and metabolic disease; Z90.49 Acquired absence of other specified parts of digestive tract; Z98.51 Tubal ligation status; Z87.891 Personal history of nicotine dependence; Z82.49 Family history of ischemic heart disease and other diseases of the circulatory system; Z80.9 Family history of malignant neoplasm, unspecified; Z91.018 Allergy to other foods
CPT/HCPCS: 49329; S2900; 64488

== ENCOUNTER → 2019-05-01 | Outpatient (CLI) | payer OTHER ==
--- NOTE | 2019-05-01 14:48 | P.PN ---
Subjective Progress Note Date: 05/01/19 DATE OF SERVICE: 05/01/2019 CHIEF COMPLAINT: Follow-up lysis of adhesions HISTORY OF PRESENT ILLNESS: Angelique Little is a 53-year-old female who is status post lysis of adhesions. She is POD 2. She denies any new abdominal pain. She reports eating out of boredom. Her highest weight prior to any surgical intervention was 300 pounds. Today she comes in weighing 209 pounds from 201 pounds, 1 month ago. She has gained 8 pounds in 1 month. Her ideal body weight for her 5-foot 7-inch frame is 158 pounds. She has maintained a 91-pound weight loss. Body mass index has been reduced from 47.1 down to 32.7. Percent excess weight loss has been maintained at 64 %. PHYSICAL EXAM: VITAL SIGNS: 5 feet 7 inches; 209 pounds. Body mass index 32.7 Vital Signs Temp 97.8 F 05/01/19 14:12 Pulse 73 05/01/19 14:12 Resp BP 135/82 05/01/19 14:12 Pulse Ox GENERAL: Well-developed female in no acute distress. ABDOMEN: Soft, nontender. No peritoneal signs. No incisional hernias. HEENT: No sclera icterus. Extraocular movements grossly intact. Moist buccal mucosa. Head is atraumatic, normocephalic. Hears conversational speech. No nasal drainage. NECK: Supple without lymphadenopathy. No JV distention. CHEST: Non-labored respirations and equal bilateral excursions. CARDIOVASCULAR: Regular rate and rhythm. Palpable 2+ radial pulses. MUSCULOSKELETAL: No clubbing, cyanosis or edema. NEUROLOGIC: No focal or lateralizing signs. PSYCH: Appropriate affect. Alert and oriented to person, place and time. SKIN: Well perfused. Good skin turgor. ASSESSMENT: 1. Morbid obesity due to excess caloric intake. 2. Body mass index reduced from 47 down to 32.7 3. Status post revision from sleeve gastrectomy to a Montrell-en-Y gastric bypass. 4. Gastroesophageal reflux disease, severe, now resolved. 5. History of fatigue. 6. History of chronic iron deficiency anemia, now improved. 7. Panniculitis of the abdomen. 8. Chronic migraines. 9. Secondary hyperparathyroidism. 10. Vitamin A deficiency. 11. Left upper quadrant abdominal pain. 12. Peritoneal adhesions. PLAN: 1. She reports no further abdominal pain. 2. No further reports of upper scope.
[2019-05-01 15:00] VITALS: BP 135/82; PULSE 73; TEMP 97.8; BMI 32.7
== END | disposition home or self-care (01) ==
LOC: BARWHC3 13:40
PROVIDERS: ATTEND Surgery Plastic and Reconstructive Surgery
DX: Z48.89 Encounter for other specified surgical aftercare (principal); E66.01 Morbid (severe) obesity due to excess calories; D50.9 Iron deficiency anemia, unspecified; M79.3 Panniculitis, unspecified; G43.909 Migraine, unspecified, not intractable, without status migrainosus; N25.81 Secondary hyperparathyroidism of renal origin; E50.9 Vitamin A deficiency, unspecified; K66.0 Peritoneal adhesions (postprocedural) (postinfection); R10.12 Left upper quadrant pain; R53.83 Other fatigue; Z98.84 Bariatric surgery status; Z68.32 Body mass index [BMI] 32.0-32.9, adult
CPT/HCPCS: 99211

== ENCOUNTER → 2019-11-28 | Outpatient (CLI) | payer OTHER ==
--- NOTE | 2019-11-28 12:51 | FL ---
EXAMINATION TYPE: FL UGI w small bowel DATE OF EXAM: 11/28/2019 COMPARISON: None HISTORY: Intussusception TECHNIQUE: Single contrast small bowel follow-through and upper GI. FINDINGS: Esophagus dilates to normal caliber has normal contour to the gastroesophageal junction. Ga stroesophageal junction opens to normal caliber. There is incomplete stripping the esophageal bolus i n the horizontal drinking position. A few tertiary as well as a secondary contraction were evident. Patient has had extensive stomach surgery and currently has a small residual stomach with Montrell-en-Y a ttachment. There is prompt fill and spill through the stomach into the proximal jejunum. Small bowel follow-through: Following additional oral administration of contrast sequential overhead radiographs were obtained. Fluoroscopic spot imaging and real-time observation was performed. There is some mild prominence of the jejunal folds. Small bowel loops in left upper quadrant are some what prominent. This is in the region of the patient's discomfort. Complete compression could not be performed as some of the loops of bowel which are prominent around ribs. Where visualized, loops of b owel head freely mobile appearance. Transit time to the colon is 90 minutes. Terminal ileum appears normal. Distal ileum appears within n ormal limits. IMPRESSION: 1. Some prominence of the caliber of the proximal jejunum and multiple prominent folds of the proxim al jejunum. Correlate for jejunitis. 2. Transit time to the colon is 90 minutes. Obstruction is not identified. 3. Upper GI post Montrell-en-Y appear normal. 4. Presbyesophagus
== END | disposition home or self-care (01) ==
LOC: RADFLMAIN 08:12
PROVIDERS: ATTEND Surgery Plastic and Reconstructive Surgery
DX: K22.8 Other specified diseases of esophagus (principal); K63.89 Other specified diseases of intestine; K56.1 Intussusception; Z98.84 Bariatric surgery status
CPT/HCPCS: 74240; 74248

== ENCOUNTER → 2019-12-09 | Outpatient (CLI) | payer OTHER ==
--- NOTE | 2019-12-09 13:39 | CT ---
EXAMINATION TYPE: CT abdomen pelvis w con DATE OF EXAM: 12/09/2019 HISTORY: Epigastric abdominal pain per patient. Diverticulitis per order. CT DLP: 1253mGycm Automated Exposure Control for Dose Reduction was Utilized. CONTRAST: CT scan of the abdomen and pelvis is performed with IV Contrast, patient injected with 100ml mL of Is ovue 300. COMPARISON: CT abdomen and pelvis February 02, 2015. Upper GI study with small bowel follow through Nov FINDINGS: LUNG BASES: No significant abnormality is appreciated. LIVER/GB: Gallbladder is surgically absent. Mild left-sided intrahepatic and central extrahepatic elsie iary dilatation up to 12 mm near sabrina hepatis on coronal image 31. Prior CT PANCREAS: No significant abnormality is seen. SPLEEN: No significant abnormality is seen. ADRENALS: No significant abnormality is seen. KIDNEYS: No significant abnormality is seen. BOWEL: Oral contrast reaches level of the distal transverse colon. Postsurgical changes from gastric bypass procedure epigastric region redemonstrated. No suspicious small or large bowel dilatation. Cor relating with recent upper GI small bowel study there is moderate gastric fold prominence in the left upper to mid jejunal loops appear slightly suboptimally evaluated on this CT study of contrast as pa ssed through this level or this level is bypassed. Somewhat redundant sigmoid colon. UTERUS/ADNEXA: Anteverted uterus. LYMPH NODES: No greater than 1cm abdominal or pelvic lymph nodes are appreciated. OSSEOUS STRUCTURES: Multilevel spurring in the spine. OTHER: Mild calcified plaque of the distal abdominal aorta. IMPRESSION: No significant colonic diverticulosis or CT evidence for acute diverticulitis. Persistent probable left mid abdominal enteritis involving jejunal loops. No acute finding otherwise evident. N ew Mild left-sided intrahepatic and extra hepatic biliary dilatation. Need to follow-up by ERCP or MR CP should be based on clinical and lab correlation.
== END | disposition home or self-care (01) ==
LOC: RADCTMAIN 10:51
PROVIDERS: ATTEND Surgery Plastic and Reconstructive Surgery
DX: K57.92 Diverticulitis of intestine, part unspecified, without perforation or abscess without bleeding (principal)
CPT/HCPCS: 74177; Q9967

== ENCOUNTER → 2022-10-19 | Outpatient (CLI) | payer OTHER ==
--- NOTE | 2022-10-19 15:08 | P.HPBAR ---
Bariatric H&P - History & Physicial H&P Date: 10/19/22 History & Physicial: Visit/CC: Patient initial contact: Initial weight: 92.079 kg Initial weight in pounds: Height: Initial BMI: Last weight: Current weight: Current weight in pounds: Current BMI: [place] body weight (based on NIH guidelines): Excess body weight loss: The patient is a 57 year-old F who presents for Bariatric Assessment. She is follow up from bariatric center. Plan for labs check. She has persistent left upper quadrant pain. Maybe related to back pain. She has heartburn on occasion. No problem with bowel movements. She was told her of stomach cancer. EGD and colon Past Medical History Past Medical History: Blood Disorder, GERD/Reflux Additional Past Medical History / Comment(s): Has a kidney stones, runs low BP, Hx severe anemia. HX HYPOGLYCEMIA. C/O PAIN IN LUQ ABD/RIB AREA. History of Any Multi-Drug Resistant Organisms: None Reported Past Surgical History: Bariatric Surgery, Section, Cholecystectomy, Tubal Ligation Additional Past Surgical History / Comment(s): lap band 2009, later removed. gastric sleeve 2012, ELLIOT-N-Y 2014. lysis of abdominal adhesions on 04/29/19 Past Anesthesia/Blood Transfusion Reactions: Postoperative Nausea & Vomiting (PONV) Additional Past Anesthesia/Blood Transfusion Reaction / Comm: only once after surgery Past Psychological History: No Psychological Hx Reported Past Alcohol Use History: None Reported Additional Past Alcohol Use History / Comment(s): quit smoking 2004, smoked since age of 16 Past Drug Use History: None Reported - Past Family History Mother Family Medical History: Deep Vein Thrombosis (DVT) Father Family Medical History: Cancer Brother(s) Family Medical History: Cancer Sister(s) Family Medical History: Cancer, Deep Vein Thrombosis (DVT) Bariatric Checklist Checklist: Plan: Checklist: EGD: 1. Hiatal hernia: 2. H. Pylori: HgbA1c: Vitamin D: Smoking: Former smoker Primary care physician referral: Comfort Limon Psychiatry clearance: Cardiology clearance: Sleep study: Diet journal: VTE risk score: VTE risk level: Rehab needs at discharge:
[2022-10-19 15:18] VITALS: BP 135/87; PULSE 79; TEMP 98.1; BMI 30.7
[2022-10-20 01:13] LABS: HCT 39.3 % (37.2-46.3); HGB 12.2 g/dL (12.0-15.0); MCH 28.4 pg (27.0-32.0); MCV 91.4 fL (80.0-97.0); Mean Platelet Volume 9.8 fL (9.5-12.2); NRBC Per 100 WBC 0 /100 WBCS (0.0-0.0); Platelet Count 322 X 10*3/uL (140-440); RDW 13.5 % (11.5-14.5); WBC 4.97 X 10*3/uL (4.50-10.00)
[2022-10-20 03:28] LABS: LDL Cholesterol,Calculated 133.1 mg/dL (0.0-131.0); Prealbumin 18.9 mg/dL (18.0-42.0)
[2022-10-20 04:25] LABS: ALT 18 U/L (8-44); AST 19 U/L (13-35); Albumin 4.4 g/dL (3.8-4.9); Albumin/Globulin Ratio 1.94 (1.60-3.17); Alkaline Phosphatase 127 U/L (41-126); Blood Urea Nitrogen 15.8 mg/dL (9.0-27.0); Calcium 9.4 mg/dL (8.7-10.3); Carbon Dioxide 24.5 mmol/L (20.0-27.5); Chloride 108 mmol/L (96-109); Globulin 2.3 g/dL (1.6-3.3); Glucose 76 mg/dL (70-110); Iron 79 ug/dL (50-170); Magnesium 2.2 mg/dL (1.5-2.4); Non-African American GFR(CKD) 94.9 (60.0-200.0); Phosphorus 3.3 mg/dL (2.4-5.1); Potassium 4.3 mmol/L (3.5-5.5); Sodium 144 mmol/L (135-145); Total Bilirubin <0.15 mg/dL (0.30-1.20); Total Iron Binding Capacity 405 ug/dL (228-460); Total Protein 6.6 g/dL (6.2-8.2)
[2022-10-20 13:00] LABS: Zinc, Serum 52 ug/dL (60-130)
[2022-10-21 11:50] LABS: Vitamin A 41 ug/dL (38-106)
== END ==
LOC: BARWHC3 13:32
PROVIDERS: ATTEND Surgery Plastic and Reconstructive Surgery
DX: E66.01 Morbid (severe) obesity due to excess calories (principal); K21.9 Gastro-esophageal reflux disease without esophagitis; N20.0 Calculus of kidney; E89.1 Postprocedural hypoinsulinemia; D50.8 Other iron deficiency anemias; D50.9 Iron deficiency anemia, unspecified; E44.0 Moderate protein-calorie malnutrition; E44.1 Mild protein-calorie malnutrition; E45 Retarded development following protein-calorie malnutrition; E46 Unspecified protein-calorie malnutrition; E55.9 Vitamin D deficiency, unspecified; K74.1 Hepatic sclerosis; N19 Unspecified kidney failure; T56.894A Toxic effect of other metals, undetermined, initial encounter; Z91.048 Other nonmedicinal substance allergy status; Z91.018 Allergy to other foods; Z87.891 Personal history of nicotine dependence
CPT/HCPCS: 84255; 84134; 84425; 80061; 80053; 82607; 82728; 82525; 82746; 83540; 83550; 83735; 84100; 84443; 84590; 84630; 85027; 82306; 83970; 83036; G0463; 99211

== ENCOUNTER → 2023-11-29 | Outpatient (CLI) | payer OTHER ==
[2023-11-29 15:30] VITALS: BP 138/74; PULSE 69; RESP 16; TEMP 98.1; BMI 27.3
--- NOTE | 2023-11-29 15:47 | P.BASOAP ---
Subjective Progress Note Date: 11/29/23 She has pannus grade 3 pannus. She could not afford the cream. She is looking into panniculectomy. She has redness despite skin powder. Highest weight is 265 pounds. Lowest weight 158 pounds. She has troubles with grooming and wearing clothes. She has lower back pain. She reports constant redness. Plan for dermatology. Correction of labs. Target protein daily is 80 grams. Carbs daily 50 g to 100 g. Fluids daily 100 oz. Calories 1000 kcal. Nystatin powder. Clinical Evaluator. appointment. FU January 23 Objective - Vital Signs Vital signs: Vital Signs Temp 98.1 F 11/29/23 15:27 Pulse 69 11/29/23 15:27 Resp 16 11/29/23 15:27 BP 138/74 11/29/23 15:27 Pulse Ox FiO2 Intake & Output 11/28/23 11/29/23 11/29/23 18:59 06:59 18:59 Weight 79.379 kg Assessment/Plan Plan: Date: 11/29/23 Initial Weight: 92.079 kg Initial BMI: 31.8 Current Weight: 79.379 kg Current BMI: 27.3 Type of Surgery: Montrell-en-Y Gastric Bypass Total Volume in Band: Previous Volume: Volume Removed: Volume Added: Band Size:
== END ==
LOC: BARWHC3 13:54
PROVIDERS: ATTEND Surgery Plastic and Reconstructive Surgery
DX: E66.01 Morbid (severe) obesity due to excess calories (principal); H16.429 Pannus (corneal), unspecified eye; M54.50 Low back pain, unspecified; F17.200 Nicotine dependence, unspecified, uncomplicated; Z98.84 Bariatric surgery status; Z90.3 Acquired absence of stomach [part of]; Z91.018 Allergy to other foods; Z88.5 Allergy status to narcotic agent; Z68.27 Body mass index [BMI] 27.0-27.9, adult
CPT/HCPCS: 99211

== ENCOUNTER → 2024-01-17 | Outpatient (CLI) | payer OTHER ==
[2024-01-17 13:54] LABS: Partial Thromboplastin Time 22.4 sec (22.0-30.0); Prothrombin Time 10.6 sec (10.0-12.5)
[2024-01-17 18:40] LABS: HCT 37.1 % (37.2-46.3); HGB 11.7 g/dL (12.0-15.0); MCH 27.9 pg (27.0-32.0); MCHC 31.5 g/dL (32.0-37.0); MCV 88.3 FL (80.0-97.0); Mean Platelet Volume 9.6 FL (9.5-12.2); NRBC Per 100 WBC 0 X 10*3/uL (0.00-0.01); Platelet Count 310 X 10*3/uL (140-440); RDW 13.8 % (11.5-14.5); WBC 4.63 X 10*3/uL (4.50-10.00)
[2024-01-17 21:51] LABS: % Iron Saturation 14.18 (12.00-45.00); ALT 18 U/L (8-44); AST 20 U/L (13-35); Albumin 4.3 g/dL (3.8-4.9); Albumin/Globulin Ratio 1.95 Ratio (1.60-3.17); Alkaline Phosphatase 91 U/L (41-126); BUN/Creat Ratio 17.71 Ratio (12.00-20.00); Blood Urea Nitrogen 12.4 mg/dL (9.0-27.0); Calcium 9.4 mg/dL (8.7-10.3); Carbon Dioxide 23.3 mmol/L (21.6-31.8); Chloride 106 mmol/L (96-109); Chol/HDL Ratio 2.96 Ratio; Ferritin 10.4 ng/mL (10.0-291.0); Globulin 2.2 g/dL (1.6-3.3); Glucose 90 mg/dL (70-110); Iron 59 UG/DL (50-170); LDL Cholesterol,Calculated 116.8 mg/dL (0.0-131.0); Magnesium 2.1 mg/dL (1.5-2.4); Phosphorus 4.1 mg/dL (2.4-5.1); Potassium 4.8 mmol/L (3.5-5.5); Sodium 142 mmol/L (135-145); Total Bilirubin 0.3 mg/dL (0.3-1.2); Total Iron Binding Capacity 416 UG/DL (228-460); Total Protein 6.5 g/dL (6.2-8.2)
[2024-01-17 23:53] LABS: Prealbumin 17.9 mg/dL (18.0-42.0)
[2024-01-18 12:37] LABS: Zinc, Serum 87 ug/dL (60-130)
[2024-01-19 11:15] LABS: Vit B1(Thiamine) 52 ug/L (38-122)
== END | disposition home or self-care (01) ==
LOC: LABPAT 12:09
PROVIDERS: ATTEND Surgery Plastic and Reconstructive Surgery
DX: E66.01 Morbid (severe) obesity due to excess calories (principal); D50.8 Other iron deficiency anemias; K91.2 Postsurgical malabsorption, not elsewhere classified; E89.1 Postprocedural hypoinsulinemia; E44.0 Moderate protein-calorie malnutrition; E45 Retarded development following protein-calorie malnutrition; E55.9 Vitamin D deficiency, unspecified; K74.1 Hepatic sclerosis; N19 Unspecified kidney failure; T56.894A Toxic effect of other metals, undetermined, initial encounter; K50.90 Crohn's disease, unspecified, without complications
CPT/HCPCS: 80053; 80061; 80307; 80323; 82306; 82525; 82607; 82728; 82746; 83036; 83540; 83550; 83735; 83970; 84100; 84134; 84255; 84425; 84443; 84590; 84630; 85027; 85610; 85730; 93005

== ENCOUNTER → 2024-02-05 | Outpatient (CLI) | payer OTHER ==
[~2024-02-05] MED LIST changes: +CYANOCOBALAMIN 1,000 MCG/ML 1 ML VIAL ONE; -DEXAMETHASONE SOD PHOSPHATE 10 MG/ML 1 ML VIAL IV ONE; -LACTATED RINGERS 1,000 ML IV SCH; -MIDAZOLAM 2 MG/2 ML VIAL IV PRN; -Pre Op ABX Message 1 EACH MISC MISCELLANE ONE; -SCOPOLAMINE 1.5MG/72HR PATCH TRANSDERM ONE
== END ==
LOC: PROCWHC3 12:40 → EDSTATUS 13:00
PROVIDERS: ATTEND Surgery Plastic and Reconstructive Surgery
DX: D51.9 Vitamin B12 deficiency anemia, unspecified (principal)
CPT/HCPCS: 96372